=== PATIENT | male | born 1950 | race Caucasian/White ===

== ENCOUNTER 2017-06-14 13:00 | Outpatient (CLI) | payer MEDICARE ==
--- NOTE | 2017-06-14 14:53 | RAD ---
CHEST TWO VIEW: History: Dyspnea. Comparison: 05-04-16 FINDINGS: Aortic stent graft is similar. No further dilatation of the aorta is appreciated. The distal thoracic aorta is markedly tortuous and ectatic. Lungs are hyperinflated. Granuloma left lung apex as well as left lower lobe. Similar markings right lung base, likely chronic in nature. Cardiac silhouette is similar. Surgical clips left neck. Midthoracic spine compression deformity, similar. IMPRESSION: No acute intrathoracic abnormality. No significant change. POS: [facility]
== END 2017-06-14 13:01 | disposition home or self-care (01) ==
LOC: RAD 13:00
PROVIDERS: ATTEND Internal Medicine Pulmonary Disease
DX: R06.00 Dyspnea, unspecified (principal)
CPT/HCPCS: 71046